=== PATIENT | male | born 1950 | race Caucasian/White ===

== ENCOUNTER 2017-10-30 09:58 | Emergency (ER) | payer OTHER ==
[~2017-10-30] VITALS: Ht 182.9 cm; Wt 87.2 kg
[~2017-10-30 09:58] MED LIST: ADULT FOLDING1 EACH MC; ASCORBIC ACID500 M3 PO; ASPIRIN EC325 MG PO; CARDIZEM CD,CA300 MG PO; CARDIZEM30 MG PO; CELECOXIB200 MG PO; DAILY MULTIPLE1 EACH PO; HYDROCODON-ACE1 EAC7 PO; IRON325 M1 PO; LISINOPRIL20 MG PO; MAGNESIUM250 MG PO; NORVASC5 MG PO; Omega III EPA + DHA PO; Pradaxa PO; SENNA PLUS TAB1 EACH PO; Theragran-M,Centrum, PO; Tylenol Regular Stre PO; VITAMIN E400 UNIT PO; ZESTRIL,PRINIVI20 MG PO
[2017-10-30 11:10] LABS: HEMATOCRIT 43.8 % (38.0-50.0); MCH 32.4 PG (29.0-34.0); MCHC 34.7 G/DL (30.0-36.0); MCV 93.4 FL (86-99); MEAN PLAT.VOLUME 11.1 uM^3 (9.0-12.4); PLATELET COUNT 162 K/uL (156-360); RBC DIS.WIDTH-CV 12.4 % (11.8-14.6); RBC DIS.WIDTH-SD 42.6 % (39-53); RED BLOOD COUNT 4.69 M/uL (4.00-5.50)
[2017-10-30 11:22] LABS: CHLORIDE 105 mEq/L (99-109); POTASSIUM 4.1 mEq/L (3.7-5.4); SODIUM 140 mEq/L (136-147)
[2017-10-30 11:24] LABS: GLUCOSE 108 mg/dL (70-99)
[2017-10-30 11:25] LABS: ANION GAP 11 MEQ/L (2-14)
[2017-10-30 11:26] LABS: TOTAL BILIRUBIN 0.8 mg/dL (0.0-1.0)
[2017-10-30 11:27] LABS: ALKALINE PHOSPHATASE 69 IU/L (3-129)
[2017-10-30 11:28] LABS: GFR ESTIMATE (CALCULATED) > 59 mL/min/ (58.99-99999)
[2017-10-30 11:29] LABS: UREA NITROGEN (BUN) 36 mg/dL (9-23)
[2017-10-30 11:59] LABS: ADD MIUA? YES; BILIRUBIN NEGATIVE; BLOOD LARGE; COLOR AMBER ((YELLOW)); GLUCOSE (STRIP) NEGATIVE; KETONES 20; LEUKOCYTES LARGE; NITRITE NEGATIVE; PROTEIN (STRIP) 100; SPECIFIC GRAVITY 1.021 (1.000-1.030); UROBILINOGEN 0.2 MG/DL (0.2-1.0)
[2017-10-30 12:39] LABS: RED BLOOD CELLS TNTC /HPF (0-5); UCUL ADDED? YES; WHITE BLOOD CELLS TNTC /HPF (0-5)
[2017-10-30] MEDS ORDERED: CIPRO500 MG PO (14:24)
[2017-10-30 14:39] VITALS: BP 110/70
== END 2017-10-30 14:50 | disposition home or self-care (01) ==
LOC: EME 09:58
PROVIDERS: Emergency Medicine
DX: N39.0 Urinary tract infection, site not specified (principal); R31.9 Hematuria, unspecified; N13.30 Unspecified hydronephrosis; I10 Essential (primary) hypertension; Z85.9 Personal history of malignant neoplasm, unspecified
CPT/HCPCS: 74176; 80053; 81003; 85027; 87086; 99281; 99285; J0696